=== PATIENT | female | born 1945 | race Caucasian/White ===

== ENCOUNTER 2022-03-07 11:24 | Emergency (ER) | payer MEDICARE, SELFPAY ==
[2022-03-07 11:38] VITALS: BP 100/80; BP 148/62; PULSE 71; PULSE 72; RESP 18; TEMP 36.9; O2SAT 96; O2SAT 97; BMI 24.5
--- NOTE | 2022-03-07 12:41 | PC.NURSE ---
pt extremely aggitated. Seen by . called sister to pick pt up. Pt provided with drink and waiting in hallway for ride home.
--- NOTE | 2022-03-07 13:25 | PC.NURSE ---
pt continues to wait in hallway for ride home with sister. Pt provided with drink and blankets
--- NOTE | 2022-03-07 13:38 | ED.AMS ---
HPI - Altered Mental Status General Chief Complaint: Altered Mental Status Stated Complaint: AMS,WEAKNESS,@ MD OFFICE X'S 2 TODAY PER MD Time Seen by Provider: 03/07/22 13:37 Source: patient and family (Sister, Akiko) Mode of arrival: EMS Limitations: other (Dementia) History of Present Illness HPI narrative: 77-year-old female who is brought to the emergency department by ambulance for evaluation of confusion. The patient apparently went to her doctor's office earlier today for evaluation for feeling ill. The doctor's office did not have an urgent visit sent the patient to an urgent care clinic. The patient apparently forgot that she had gone to the urgent care clinic and went back to her doctor's office again stating that she was not feeling well. An ambulance was called and she was sent to the emergency department for evaluation. Here in the emergency department the patient is oriented to person, she lacks insight as to why she is here in the hospital and does not remember that she was seen at an urgent care clinic or that she was at her PCPs office. The patient became agitated and wanted to leave but I was able to convince her to wait in the emergency department until I could talk to her sister. I did talk to her sister Lelo. Her sister states that the patient has been getting more confused. The patient has been calling ambulance is and has been seen multiple times at [facility] and at [facility]. The sisters concerned the patient is having dementia and doing strange things at home. She has refused to see a psychiatrist or get on medications. The police of had to go to her house multiple times secondary her confusion. Related Data Allergies Allergy/AdvReac Type Severity Reaction Status Date / Time No Known Allergies Allergy Unverified 06/30/20 16:34 [No Known Allergies*] Review of Systems Review of Systems: Yes Unobtainable due to mental status (Patient is not reliable secondary to her dementia) [facility] Past Medical History [facility] Narrative: Past medical history: None. Social history: She lives alone. She has 2 sisters that are trying to help her and I did speak to her sister Mel. The patient states that she would like to make her sister Danielle her healthcare proxy. Social History Social History Advance Directives: No Advance Directives Information Provided: No Physical Exam ED Vital Signs: Vital Signs - 24 hr 03/07/22 11:38 Temperature 98.5 F Pulse Rate 71 Respiratory Rate 18 Blood Pressure 148/62 H Pulse Oximetry 96 BMI result Body Mass Index 24.5 Const Other: Awake, alert, female patient, she is oriented to person, she lacks insight as to why she is here, she has no memory of going to her doctor's office earlier today or going to an urgent care clinic earlier today. Orientation/consciousness: oriented to person [facility] Head: Yes normal to inspection, Yes normocephalic and Yes atraumatic Ears: external ears normal General nose exam: Normal external nose present Face and sinus: Yes normal facial exam Mouth: Normal oral and palatal mucosa present Throat: Yes posterior oropharynx normal Eyes General: appearance normal, both eyes and all related structures Pupils: Equal, round and reactive pupils present Neck Neck: Yes normal visual inspection, Yes no lymphadenopathy, Yes trachea midline and Yes supple Chest Chest palpation & inspection: normal inspection of the chest and normal palpation of entire chest wall Resp Effort & Inspection: normal respiratory effort and able to speak in complete sentences Auscultation: clear to auscultation bilaterally Cardio Rate: regular rate Rhythm: regular rhythm Heart sounds: S1 normal heart sound present, S2 normal heart sound present and no murmurs GI Inspection: Yes normal to inspection Palpation (GI): Soft to palpation, nontender and no guarding Auscultation: normal bowel sounds General: Yes no CVA tenderness Back/Spine/Pelvis Back: no CVA tenderness Skin General skin exam: no rashes or lesions noted Neuro General: oriented to person Cranial nerves: Yes CN's II-XII intact bilaterally and Yes Equal, round and reactive pupils present Cognition (Neuro): normal cognition Motor exam (neuro): 5/5 motor strength present throughout Extrem General: Yes normal to inspection Psych Appearance: grossly normal Speech and movement: Normal speech and movement present Affect: Animated affect present Course Course Course Narrative: 77-year-old female who presents emergency department for evaluation confusion. The patient lacks insight as to why she is here and lacks insight into the fact that she was seen by an urgent care clinic and that she was at her PCPs office twice today. In talking to her sister, Lelo, I am concerned the patient has dementia which is getting progressively worse. The patient is not a danger to herself or others however her sisters worried that she is acting more bizarrely at home and that the they are unable to get the patient the help that she needs. The patient refused blood work at this time. We did check with [facility] and the patient's sister is listed as the healthcare proxy. We obtained a copy of this healthcare proxy The rifle case repairer and I explained to the sister that she needs to contact [employer] and file with an elder at risk claim so they can investigate the situation. At that point, the patient can be evaluated to see if she is competent to make decisions and if she is incompetent then the healthcare proxy can be invoked and the sister can make decisions for the patient. The patient's sister did understand discussion and the patient was discharged in the care of her sister. Discharge Plan Discharge Clinical Impression: Acute confusion Patient Disposition: Home, Self-Care Additional Instructions: Follow-up with your primary care doctor for further treatment.
== END 2022-03-07 14:04 | disposition home or self-care (01) ==
PROVIDERS: Emergency Provider Emergency Medicine Emergency Medical Services; PCP Nurse Practitioner Acute Care
DX: F03.91 Unspecified dementia, unspecified severity, with behavioral disturbance (principal); F05 Delirium due to known physiological condition
CPT/HCPCS: 99283